=== PATIENT | female | born 1950 ===

== ENCOUNTER → 2018-06-29 21:34 | Outpatient (REF) | payer SELFPAY ==
[2018-07-03 11:08] LABS: QuantiFERON TB NEGATIVE (Negative)
[2018-07-05 13:00] LABS: Rapid Plasma Reagin NON-REACTIVE
== END ==
LOC: LAB 21:34
PROVIDERS: Visit Provider Family Medicine Adult Medicine
DX: Z00.00 Encounter for general adult medical examination without abnormal findings (principal)
CPT/HCPCS: 86480; 86592; 87591